=== PATIENT | female | born 1995 | race Caucasian/White ===

== ENCOUNTER 2018-07-20 08:28 | Emergency (ER) | payer MEDICAID ==
--- NOTE | 2018-07-20 09:23 | ER Document Report ---
ED Medical Screen (RME) - General Chief Complaint: Vag Bleeding, +preg <12wks Stated Complaint: VAGINAL BLEEDING Time Seen by Provider: 07/20/18 09:18 Notes: Patient says that she is approximately 10 or 11 weeks and is having vaginal bleeding since last night. She is not passing any clots in her bleeding is not heavy enough to require wearing a pad. Her last menstrual cycle was early April. This is her first . She had some pelvic cramping without bleeding about a week ago when she was visiting in [place]. She was seen by a doctor there and was told she had bacterial vaginosis and put on a single antibiotic twice a day for a week and she continues to take these medications. TRAVEL OUTSIDE OF THE [place] IN LAST 30 DAYS: No - Related Data Allergies/Adverse Reactions: No Known Allergies Allergy (Verified 07/20/18 09:17) Past Medical History - Social History Chew tobacco use (# tins/day): No Drug Abuse: None Renal/ Medical History: Denies: Hx Peritoneal Dialysis Physical Exam - Vital signs Vitals: Temp Pulse Resp BP Pulse Ox 97.6 F 78 16 118/56 L 100 07/20/18 08:35 07/20/18 08:35 07/20/18 08:35 07/20/18 08:35 07/20/18 08:35 Course - Vital Signs Vital signs: Temp Pulse Resp BP Pulse Ox 97.6 F 78 16 118/56 L 100 07/20/18 08:35 07/20/18 08:35 07/20/18 08:35 07/20/18 08:35 07/20/18 08:35
[2018-07-20 09:56] LABS: ABSOLUTE EOSINOPHILS # (AUTO) 0.5 10^3/uL (0.0-0.6); ABSOLUTE LYMPHOCYTES (AUTO) 1.4 10^3/uL (0.5-4.7); ABSOLUTE MONOCYTES (AUTO) 0.4 10^3/uL (0.1-1.4); BASOPHILS % (AUTO) 0.4 % (0-2); EOSINOPHILS % (AUTO) 5.7 % (0-6); HEMATOCRIT 43.5 % (36.0-47.0); HEMOGLOBIN 15.1 g/dL (12.0-15.5); LYMPHOCYTES % (AUTO) 16.3 % (13-45); MEAN CORPUSCULAR HGB CONC 34.7 g/dL (32.0-36.0); MEAN CORPUSCULAR VOLUME 87 fl (80-97); MONOCYTES % (AUTO) 5.2 % (3-13); PLATELET COUNT 301 10^3/uL (150-450); RED BLOOD COUNT 5.03 10^6/uL (3.72-5.28); RED CELL DISTRIBUTION WIDTH 12.6 % (11.5-14.0); SEGMENTED NEUTROPHILS % (AUTO) 72.4 % (42-78); TOTAL CELLS COUNTED % (AUTO) 100 %; WHITE BLOOD COUNT 8.3 10^3/uL (4.0-10.5)
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
[2018-07-20 11:32] LABS: T.VAGINALIS (WET MOUNT) NO TRICHOMONAS SEEN
[2018-07-20 11:33] LABS: BACTERIA (WET MOUNT) 4+ BACTERIA SEEN; EPITHELIALS (WET MOUNT) 4+ EPITHELIALS SEEN; RBCS (WET MOUNT) FEW RBCS SEEN; WBCS (WET MOUNT) 3+ WBCS SEEN; YEAST (WET MOUNT) YEAST SEEN
[2018-07-20 11:40] LABS: CHLAM PCR DETECTED (NOT DETECT); GON PCR NOT DETECTED (NOT DETECT)
--- NOTE | 2018-07-20 12:24 | RADIOLOGY REPORT (SQ) ---
EXAM DESCRIPTION: U/S [id number] TRNABD 1GES W/ODOP COMPLETED DATE/TIME: 07/20/2018 12:08 pm REASON FOR STUDY: with vaginal bleeding COMPARISON: None. TECHNIQUE: Transvaginal static and realtime grayscale images acquired of the pelvis. Additional mitzi cted spectral and color Doppler images recorded. All images stored on PACs. [facility],173. CLINICAL DATES: 11 week 4 day. LIMITATIONS: None. FINDINGS: FETUS: Large irregular gestational sac in the uterus with pole present. ULTRASOUND EGA: 8 week 3 day. ULTRASOUND JUANCARLOS: 02/26/2019. CRL: 1.86 cm. FHR: No cardiac activity detected. SUBCHORIONIC BLEED: No. SIZE OF BLEED: Not applicable. UTERUS: No masses. No anomalies. CERVICAL LENGTH: 2.3 cm. Closed. RIGHT ADNEXA: Ovary not identified. No adnexal free fluid. No adnexal masses. LEFT ADNEXA: Ovary not identified. No adnexal free fluid. No adnexal masses. FREE FLUID: None. OTHER: No other significant finding. IMPRESSION: POLE WITH NO CARDIAC ACTIVITY, CONSISTENT WITH DEMISE. EGA 8 WEEK 3 DAY. Trimester of : First - 0 to 13 weeks. TECHNICAL DOCUMENTATION: JOB ID: [id number] [employer]- All Rights Reserved rev Reading location - IP/workstation name: [email or web address]
[2018-07-20] MEDS ORDERED: AZITHROMYCIN 1 GM SUSP PACKET PO ONE (12:39)
[2018-07-20] MEDS ORDERED: FLUCONAZOLE 100 MG TABLET PO ONE (12:39)
[2018-07-20] MEDS ORDERED: AZITHROMYCIN 250 MG TABLET PO ONE (13:02)
[2018-07-20 13:06] VITALS: BP 137/87
== END 2018-07-20 13:08 | disposition home or self-care (01) ==
LOC: ER 08:28
DX: O03.9 Complete or unspecified spontaneous abortion without complication (principal); A74.9 Chlamydial infection, unspecified; R10.2 Pelvic and perineal pain
CPT/HCPCS: 36415; 76801; 84702; 85025; 86900; 86901; 87210; 87491; 87591; 99284

== ENCOUNTER → 2018-07-22 | Outpatient (CLI) | payer SELFPAY ==
--- NOTE | 2018-07-22 12:29 | RADIOLOGY REPORT (SQ) ---
EXAM DESCRIPTION: U/S NON-OB PELVIS W/O DOP COMPLETED DATE/TIME: 07/22/2018 12:18 pm REASON FOR STUDY: MISSED (O02.1) O02.1 MISSED COMPARISON: None. TECHNIQUE: Dynamic and static grayscale images acquired of the pelvis via transabdominal approach an d recorded on PACS. Additional selected color Doppler and spectral images recorded. LIMITATIONS: None. FINDINGS: UTERUS: Contour normal. No mass. ENDOMETRIAL STRIPE: No masses. CERVIX: No nabothian cysts. RIGHT OVARY AND DOPPLER: Normal size. No worrisome masses. Normal arterial vascular flow without evid ence for torsion. LEFT OVARY AND DOPPLER: Ovary not visualized. FREE FLUID: None noted. OTHER: No other significant finding. MEASUREMENTS: UTERUS: 9.0 x 6.3 x 5.0 cm ENDOMETRIAL STRIPE: 16 mm RIGHT OVARY: 3.1 x 2.3 x 1.6 cm LEFT OVARY: Not visualized. IMPRESSION: No evidence of retained products. TECHNICAL DOCUMENTATION: JOB ID: [id number] [employer]- All Rights Reserved Reading location - IP/workstation name: [email or web address]
== END ==
LOC: RAD 10:37
PROVIDERS: ATTEND Student in an Organized Health Care Education/Training Program
DX: O02.1 Missed abortion (principal); Z3A.00 Weeks of gestation of pregnancy not specified
CPT/HCPCS: 36415; 76856; 84702